=== PATIENT | female | born 1980 | race Caucasian/White ===

== ENCOUNTER 2022-09-29 13:46 | Outpatient (CLI) | payer BC, SELFPAY | END 2022-09-29 13:47 | disposition home or self-care (01) | LOC: FRMREF 13:47 | PROVIDERS: PCP Physician Assistant Medical; Visit Provider Registered Nurse | DX: N89.8 Other specified noninflammatory disorders of vagina (principal) | CPT/HCPCS: 87109 ==

== ENCOUNTER 2022-12-15 08:16 | Outpatient (CLI) | payer BC, SELFPAY ==
--- NOTE | 2022-12-15 08:15 | CRLHL7_ITS ---
For Patients: As a result of the Century Cures Act, medical imaging exams and procedure reports are released immediately into your electronic medical record. You may view this report before your referring provider. If you have questions, please contact your health care provider. BILATERAL SCREENING MAMMOGRAM WITH COMPUTER-AIDED DETECTION TECHNIQUE: CC and MLO views were obtained. These mammographic images have been obtained using full-field digital technique. These mammographic images were interpreted with the benefit of computer-aided detection. COMPARISON FILM: 01/06/21. FINDINGS: There are scattered areas of fibroglandular density IMPRESSION: There is no radiographic evidence for malignancy. ASSESSMENT: BI-RADS Category 1: Negative RECOMMENDATION: Routine screening mammogram in 1 year. A lay language report of this examination will be provided to the patient. JAYA NGUYEN M.D. Diagnostic/Nuclear Medicine Radiologist [email or web address] DIYA:jie Transcribed: 1:16 p.mFrankie ceron/Dictated by: Jaya Nguyen MD @ 12/15/2022 10:42:00 AM (Electronically Signed)
== END 2022-12-15 08:17 | disposition home or self-care (01) ==
LOC: MAMMO 08:17
PROVIDERS: PCP Physician Assistant Medical; Visit Provider Registered Nurse
DX: Z12.31 Encounter for screening mammogram for malignant neoplasm of breast (principal)
CPT/HCPCS: 77067

== ENCOUNTER 2023-03-02 10:59 | Outpatient (CLI) | payer BC, SELFPAY | END 2023-03-02 11:00 | disposition home or self-care (01) | PROVIDERS: PCP Physician Assistant Medical; Visit Provider Registered Nurse | DX: Z01.419 Encounter for gynecological examination (general) (routine) without abnormal findings (principal); R53.83 Other fatigue; R51.9 Headache, unspecified; F41.1 Generalized anxiety disorder; Z30.9 Encounter for contraceptive management, unspecified; Z13.6 Encounter for screening for cardiovascular disorders | CPT/HCPCS: 80061; 82306; 84443 ==

== ENCOUNTER 2024-01-01 10:46 | Outpatient (CLI) | payer BC, SELFPAY ==
--- NOTE | 2024-01-01 10:45 | MM_ITS ---
Patient: ALEKSANDR SANCHES Facility:?[facility] Patient ID:?[id number] Site Patient ID:?[id number] Site :?1980 Study:?XRay-Breast Bilateral 3D W/CAD-01/01/2024 11:23:04 AM Ordering Physician:Yadira Final Report: DIGITAL DIAGNOSTIC BILATERAL MAMMOGRAM USING TOMOSYNTHESIS AND COMPUTER-AIDED DETECTION RIGHT BREAST ULTRASOUND ?CLINICAL HISTORY: RIGHT breast lump. COMPARISON: 12/15/2022, 01/06/2021. TECHNIQUE: Digital BILATERAL mammogram in four projections. Tomosynthesis and computer- aided detection utilized. Real-time ultrasound imaging of RIGHT breast with imaging documentation. BREAST COMPOSITION: There are areas of scattered fibroglandular density. FINDINGS: 3D CC/MLO BILATERAL mammogram images submitted. No significant interval change compared to prior studies. No suspicious masses or architectural distortion. No suspicious calcifications. Targeted RIGHT breast ultrasound performed at 3 o`clock 8 cm from the nipple. Normal breast tissue is present. No fluid collection or suspicious mass. IMPRESSION: No suspicious findings. No evidence of malignancy. RECOMMENDATIONS: Annual BILATERAL screening mammography. Results and recommendations discussed with the patient. BI-RADS Category 2: Benign A lay language report of this examination will be provided to the patient. Dictated by Wellington Burnham MD @ 01/01/2024 11:36:22 AM jj/Dictated by: Wellington Burnham MD @ 01/01/2024 11:36:00 AM Signed by:?Wellington Burnham MD @01/01/2024 12:48:07 PM (Electronic Signature)
--- NOTE | 2024-01-01 11:15 | US_ITS ---
Patient: ALEKSANDR SANCHES Facility:?[facility] Patient ID:?[id number] Site Patient ID:?[id number] Site :?1980 Study:?XRay-Breast Bilateral 3D W/CAD-01/01/2024 11:23:04 AM Ordering Physician:Yadira Final Report: DIGITAL DIAGNOSTIC BILATERAL MAMMOGRAM USING TOMOSYNTHESIS AND COMPUTER-AIDED DETECTION RIGHT BREAST ULTRASOUND ?CLINICAL HISTORY: RIGHT breast lump. COMPARISON: 12/15/2022, 01/06/2021. TECHNIQUE: Digital BILATERAL mammogram in four projections. Tomosynthesis and computer- aided detection utilized. Real-time ultrasound imaging of RIGHT breast with imaging documentation. BREAST COMPOSITION: There are areas of scattered fibroglandular density. FINDINGS: 3D CC/MLO BILATERAL mammogram images submitted. No significant interval change compared to prior studies. No suspicious masses or architectural distortion. No suspicious calcifications. Targeted RIGHT breast ultrasound performed at 3 o`clock 8 cm from the nipple. Normal breast tissue is present. No fluid collection or suspicious mass. IMPRESSION: No suspicious findings. No evidence of malignancy. RECOMMENDATIONS: Annual BILATERAL screening mammography. Results and recommendations discussed with the patient. BI-RADS Category 2: Benign A lay language report of this examination will be provided to the patient. Dictated by Wellington Burnham MD @ 01/01/2024 11:36:22 AM jj/Dictated by: Wellington Burnham MD @ 01/01/2024 11:36:00 AM Signed by:?Wellington Burnham MD @01/01/2024 12:48:07 PM (Electronic Signature)
== END 2024-01-01 10:47 | disposition home or self-care (01) ==
LOC: MAMMO 10:47
PROVIDERS: PCP Physician Assistant Medical; Visit Provider Registered Nurse
DX: N63.14 Unspecified lump in the right breast, lower inner quadrant (principal)
CPT/HCPCS: 76642; 77066; G0279

== ENCOUNTER 2024-01-19 13:40 | Outpatient (CLI) | payer BC, SELFPAY | END 2024-01-19 13:41 | disposition home or self-care (01) | LOC: NFLDREF 02-07 09:21 | PROVIDERS: PCP Physician Assistant Medical; Referring Provider Registered Nurse; Visit Provider Registered Nurse | DX: R53.83 Other fatigue (principal) | CPT/HCPCS: 82306; 84443 ==

== ENCOUNTER 2024-06-24 14:41 | Outpatient (CLI) | payer BC, SELFPAY | END 2024-06-24 14:42 | disposition home or self-care (01) | PROVIDERS: PCP Physician Assistant Medical; Visit Provider Family Medicine | DX: R53.83 Other fatigue (principal); F41.1 Generalized anxiety disorder; R23.2 Flushing | CPT/HCPCS: 83001; 84443 ==

== ENCOUNTER 2024-08-07 07:47 | Outpatient (CLI) | payer BC, SELFPAY | END 2024-08-07 07:48 | disposition home or self-care (01) | LOC: NFLDREF 08-08 05:20 | PROVIDERS: PCP Physician Assistant Medical; Referring Provider Physician Assistant Medical; Visit Provider Family Medicine | DX: R53.83 Other fatigue (principal); M51.26 Other intervertebral disc displacement, lumbar region; R82.90 Unspecified abnormal findings in urine; R23.2 Flushing; R61 Generalized hyperhidrosis; Z83.2 Family history of diseases of the blood and blood-forming organs and certain disorders involving the immune mechanism | CPT/HCPCS: 80053; 82306; 86038; 86140; 86376; 86812; 87086 ==

== ENCOUNTER 2024-09-23 16:40 | Outpatient (CLI) | payer BC, SELFPAY | END 2024-09-23 16:41 | disposition home or self-care (01) | PROVIDERS: PCP Family Medicine; Visit Provider Family Medicine | DX: R53.83 Other fatigue (principal); R61 Generalized hyperhidrosis; F41.1 Generalized anxiety disorder | CPT/HCPCS: 84439; 84443; 84480 ==